=== PATIENT | female | born 2000 | race African-American/Black ===

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

== ENCOUNTER 2019-01-24 22:26 | Emergency (ER) | payer OTHER, SELFPAY ==
[2019-01-24 23:02] LABS: Bilirubin Negative (Negative); Blood, Urine Negative (Negative); Clarity CLEAR (Clear); Glucose, Urine (Dipstick) Negative (Negative); Leukocyte Negative (Negative); Nitrite Negative (Negative); Protein, Urine (Dipstick) Negative (Neg-Trace); Specific Gravity, Urine 1.026 (1.002-1.036)
[2019-01-24 23:51] LABS: Pregnancy Test - Urine (BHCG) Negative (Negative); Pregu Control Background? CLEAR/WHITE (CLR/WHITE); Pregu Control Bar Appear? YES (CONTROL BAR); Specific Gravity 1.026 (1.002-1.036)
[2019-01-26 00:59] LABS: Chlamydia by PCR Not Detected (NotDetected); GC by PCR Not Detected (NotDetected)
== END 2019-01-25 00:18 | disposition home or self-care (01) ==
LOC: ERS 22:26
DX: N76.0 Acute vaginitis (principal)
CPT/HCPCS: 81003; 81025; 87480; 87491; 87510; 87591; 87660; 99283

== ENCOUNTER 2020-05-18 06:00 | Emergency (ER) | payer BC | END 2020-05-18 06:33 | disposition home or self-care (01) | LOC: ERS 06:00 | DX: J02.0 Streptococcal pharyngitis (principal) | CPT/HCPCS: 99282 ==